=== PATIENT | male | born 1945 | race Caucasian/White ===

== ENCOUNTER 2017-03-03 08:59 | Day surgery (SDC) | payer MEDICARE ==
[2017-03-03] MEDS ORDERED: LACTATED RINGERS 1,000 ML IV ONE (11:15)
[2017-03-03] MEDS ORDERED: MIDAZOLAM 2 MG/2 ML VIAL IVP ONE (11:50)
[2017-03-03] MEDS ORDERED: fentaNYL 100 MCG/2 ML VIAL IVP ONE (11:50)
[2017-03-03 12:41] VITALS: BP 111/55
== END 2017-03-03 09:00 | disposition home or self-care (01) ==
LOC: SDS 08:59
PROVIDERS: ATTEND Surgery
PROC: 0DBP8ZX Excision of Rectum, Via Natural or Artificial Opening Endoscopic, Diagnostic (ICD-10-PCS; principal; 2017-03-03 10:00)
DX: Z12.11 Encounter for screening for malignant neoplasm of colon (principal); K62.1 Rectal polyp; K64.8 Other hemorrhoids; E11.9 Type 2 diabetes mellitus without complications; I10 Essential (primary) hypertension; E78.5 Hyperlipidemia, unspecified; G47.30 Sleep apnea, unspecified; Z79.82 Long term (current) use of aspirin; Z79.84 Long term (current) use of oral hypoglycemic drugs
CPT/HCPCS: 45380; J7120

== ENCOUNTER 2018-02-21 11:26 | Outpatient (CLI) | payer MEDICARE ==
[2018-02-21 19:15] LABS: BASOPHILS # (AUTO) 0.1 10^3/uL (0.0-0.1); BASOPHILS % (AUTO) 0.9 %; EOSINOPHILS # (AUTO) 0.4 10^3/uL (0.0-0.7); EOSINOPHILS % (AUTO) 5.5 %; HGB - HEMOGLOBIN 14.4 g/dL (14.0-18.0); LYMPHOCYTES # (AUTO) 2.5 10^3/uL (1.5-3.5); LYMPHOCYTES % (AUTO) 37.7 %; MEAN CORPUSCULAR HEMOGLOBIN 32.7 pg (27.0-31.0); MEAN CORPUSCULAR HGB CONC 33.2 g/dL (32.0-36.0); MEAN CORPUSCULAR VOLUME 98.3 fL (80.0-94.0); MEAN PLATELET VOLUME 7.8 fL (7.4-11.4); MONOCYTES # (AUTO) 0.8 10^3/uL (0.0-1.0); NEUTROPHILS # (AUTO) 2.9 10^3/uL (1.5-6.6); NEUTROPHILS % (AUTO) 43.9 %; PLT - PLATELET COUNT 248 10^3/uL (130-450); RED BLOOD COUNT 4.42 10^6/uL (4.70-6.10); RED CELL DISTRIBUTION WIDTH 12.7 % (12.0-15.0); WHITE BLOOD COUNT 6.5 x10^3/uL (4.8-10.8)
[2018-02-21 19:34] LABS: ALBUMIN 4.7 g/dL (3.2-5.5); ALBUMIN/GLOBULIN RATIO 1.6 (1.0-2.2); ALKALINE PHOSPHATASE 46 IU/L (42-121); ALT ALANINE AMINOTRANSFERASE 41 IU/L (10-60); AST ASPARTATE AMINOTRANSFERASE 32 IU/L (10-42); BILIRUBIN,TOTAL 1.2 mg/dL (0.2-1.0); BUN - BLOOD UREA NITROGEN 21 mg/dL (6-20); CALCIUM 9.6 mg/dL (8.5-10.3); CARBON DIOXIDE - CO2 24 mmol/L (21-32); CHLORIDE 101 mmol/L (101-111); CHOLESTEROL 142 mg/dL; CREATININE 0.9 mg/dL (0.6-1.2); GFR - MDRD 83 (>89); GLUCOSE 144 mg/dL (70-100); HDL CHOLESTEROL 47 mg/dL; LDL CHOLESTEROL,CALCULATED 45 mg/dL; SODIUM 134 mmol/L (135-145); TOTAL PROTEIN 7.7 g/dL (6.7-8.2); VLDL CHOLESTEROL 50 mg/dL
[2018-02-21 19:53] LABS: HEMOGLOBIN A1C 0.66 g/dL; HEMOGLOBIN A1C % 6.2 % (4.6-6.2)
== END 2018-02-21 23:59 | disposition home or self-care (01) ==
LOC: LAB.WCP 11:26
PROVIDERS: ATTEND Family Medicine
DX: I10 Essential (primary) hypertension (principal); E78.5 Hyperlipidemia, unspecified; E11.9 Type 2 diabetes mellitus without complications; Z12.5 Encounter for screening for malignant neoplasm of prostate; F32.9 Major depressive disorder, single episode, unspecified
CPT/HCPCS: 36415; 80053; 80061; 82043; 83036; 84443; 85025; G0103; 83721; 84153

== ENCOUNTER 2018-11-10 07:59 | Day surgery (SDC) | payer MEDICARE ==
[~2018-11-10 07:59] MED LIST: CYCLOPENTOLATE 1% OPHTH DROPS 2 ML ONE; KETOROLAC 0.45% OPHTH DROPS ONE; PHENYLEPHRINE 2.5% OPHTH 2 ML DROPS ONE; PROPARACAINE 0.5% OPHTH DROPS 15 ML ONE
[2018-11-10] MEDS ORDERED: MIDAZOLAM 2 MG/2 ML VIAL IVP ONE (08:00)
[2018-11-10] MEDS ORDERED: fentaNYL 100 MCG/2 ML VIAL IVP ONE (08:00)
[2018-11-10] MEDS ORDERED: LACTATED RINGERS 500 ML IV ONE (08:19)
--- NOTE | 2018-11-10 08:44 | ANESTHESIA ---
Pre-Anesthesia VS, & Labs - Diagnosis Left nuclear sclerotic cataract - Procedure Left phaco with IOL implant Vital Signs: Temp Pulse Resp BP Pulse Ox 36.5 C 59 L 16 157/76 H 96 11/10/18 08:22 11/10/18 08:22 11/10/18 08:22 11/10/18 08:22 11/10/18 08:22 Height 6 ft - NPO >8 hours - Lab Results Lab results reviewed: No Home Medications and Allergies Home Medications: Ambulatory Orders Fluticasone [Flonase] 1 spray IN DAILY 11/09/18 Turmeric 1 cap PO DAILY 11/09/18 raNITIdine [Zantac] 150 mg PO DAILY 11/09/18 Fenofibrate 160 mg PO DAILY 03/02/17 Losartan [Cozaar] 50 mg PO DAILY 03/02/17 Lovastatin [Altoprev] 40 mg PO DAILY 03/02/17 metFORMIN [Glucophage] 2,000 mg PO BIDWM 03/02/17 B12/Levomefolate Calcium/B-6 [Foltx Tablet] 1 each PO DAILY 03/03/17 Cholecalciferol (Vitamin D3) [Vitamin D3] 1,000 unit PO DAILY 03/03/17 Flaxseed Oil 1,000 mg PO DAILY 03/03/17 Lutein 10 mg PO DAILY 03/03/17 Vit E/Zn/Lut/Lyco/Bilber/Hb261 [Lipotriad Vision Support Plus] 1 each PO DAILY 03/03/17 Fluticasone [Flonase] 1 spray IN DAILY 11/09/18 Turmeric 1 cap PO DAILY 11/09/18 raNITIdine [Zantac] 150 mg PO DAILY 11/09/18 Allergies/Adverse Reactions: Allergies Allergy/AdvReac Type Severity Reaction Status Date / Time codeine AdvReac Cramps Verified 11/10/18 08:19 Anes History & Medical History - Anesthetic History Anesthesia Complications: reports: No previous complications Family history of Anesthesia Complications: Denies Family history of Malignant Hyperthermia: Denies - Medical History Cardiovascular: reports: Hypertension, High cholesterol Pulmonary: reports: Sleep apnea, Other Gastrointestinal: reports: GERD, Ulcers Urinary: reports: None Neuro: reports: None Musculoskeletal: reports: Osteoarthritis Endocrine/Autoimmune: reports: Type 2 diabetes Blood Disorders: reports: None Skin: reports: Other Smoking Status: Never smoker Psychosocial: reports: No issues indicated - Surgical History General: Appendectomy Eyes Ears Nose Throat (EENT): Tonsil/Adenoidectomy Urologic: Testicular surgery Exam General: Alert Dental: Dentures full Upper Mouth Opening: Greater than 4 Fingerbreadths Neck Mobility: Normal Mallampati classification: II Thyromental Distance: greater than 6 cm Respiratory: Lungs clear Cardiovascular: Regular rate Mental/Cognitive Status: Alert/Oriented X3 Cognitive Status: Within normal limits Plan Anesthesia Type: MAC Consent for Procedure(s) Verified and Reviewed: Yes Code Status: Attempt Resuscitation ASA classification: 3-Severe systemic disease Is this case an emergency?: No
[2018-11-10] MEDS ORDERED: EPINEPHrine 1 MG/ML AMP IVP ONE (09:11)
[2018-11-10] MEDS ORDERED: BRIMONIDINE 0.2% OPHTH DROPS 5 ML OPTH ONE (09:11)
[2018-11-10] MEDS ORDERED: VANCOMYCIN OPHTHALMI 8MG/0.8ML 8 MG/0.8 ML SYRINGE IO ONE ×2 (09:12→10:51)
[2018-11-10] MEDS ORDERED: BSS/LIDOCAINE/EPINEPHRINE 1 ML SYRINGE IO ONE (09:12)
[2018-11-10] MEDS ORDERED: TRIAMCIN/MOXIFLOX OPHTHALMIC 0.6 ML VIAL IO ONE ×2 (09:12→10:50)
[2018-11-10] MEDS ORDERED: CHONDR SULF/HYALURONATE SYRINGE IO ONE (09:12)
[2018-11-10] MEDS ORDERED: TIMOLOL 0.5% OPHTH DROPS OPTH ONE (09:12)
[2018-11-10 09:54] VITALS: BP 132/60
--- NOTE | 2018-11-10 10:10 | OPERATIVE REPORT ---
DATE OF SERVICE: 11/10/2018 Physician: Anthony Coleman MD PREOPERATIVE DIAGNOSIS: Visually significant cataract, left eye. This was his first cataract surgery. POSTOPERATIVE DIAGNOSIS: Visually significant cataract, left eye. This was his first cataract surgery. DESCRIPTION OF PROCEDURE: Phacoemulsification with posterior chamber intraocular lens implant, left eye. SURGEON: Anthony Coleman MD ANESTHESIA: Monitored anesthesia care. COMPLICATIONS: None. OPERATIVE INDICATIONS: This is a 73-year-old man with progressive vision loss in the left eye due to 3-4+ nuclear sclerotic and 1+ cortical cataract. Best corrected visual acuity was 20/40 with glare to 20/160. Indications for surgery are overall decrease in vision, difficulty seeing words on a computer screen, difficulty reading, difficulty seeing street signs, difficulty driving in low light or at night, difficulty driving at night because of headlights from other vehicles, and difficulty with glare or bright lights in any situation. He was consented at length concerning risks and benefits of cataract surgery, after which he expressed a desire to proceed with surgery. OPERATIVE PROCEDURE: Patient was taken to OR #3 and placed under monitored anesthesia care. A surgical timeout was conducted confirming correct patient, correct procedure, and correct surgical site. He was given topical anesthesia and prepped and draped in the usual sterile fashion. The eye was entered at the 6 and 3 o'clock positions. Intracameral Shugarcaine was injected into the anterior chamber followed by Viscoat. A continuous-tear curvilinear capsulorrhexis was performed. The nucleus was hydrodissected and phacoemulsified. The cortex was evacuated using automated infusion and aspiration (I&A). Provisc was injected in the capsular bag and a 14.5 diopter intraocular lens inserted in the bag. Approximately a 0.8 mL mixture of triamcinolone, moxifloxacin and vancomycin was injected subconjunctivally in the superior quadrant for infection and inflammation prophylaxis. I&A was used to evacuate the viscoelastic materials. The eye was inflated to physiologic pressure using balanced salt solution and found to be watertight. The patient was taken from the operating room in good condition and given postoperative instructions. TD: 11/10/2018 09:32 [facility]
[2018-11-10] MEDS ORDERED: BRIMONIDINE 0.2% OPHTH DROPS 5 ML ONE (10:51)
[2018-11-10] MEDS ORDERED: EPINEPHrine 1 MG/ML AMP ONE (10:51)
[2018-11-10] MEDS ORDERED: BSS/LIDOCAINE/EPINEPHRINE 1 ML SYRINGE ONE (10:51)
[2018-11-10] MEDS ORDERED: TIMOLOL 0.5% OPHTH DROPS ONE (10:51)
== END 2018-11-10 08:00 | disposition home or self-care (01) ==
LOC: SDS 07:59
PROVIDERS: ATTEND Ophthalmology
PROC: 08RK3JZ Replacement of Left Lens with Synthetic Substitute, Percutaneous Approach (ICD-10-PCS; principal; 2018-11-10 09:00)
DX: H25.12 Age-related nuclear cataract, left eye (principal); E11.9 Type 2 diabetes mellitus without complications; I10 Essential (primary) hypertension; G47.33 Obstructive sleep apnea (adult) (pediatric)
CPT/HCPCS: 66984; A9270; J3490; V2632

== ENCOUNTER 2019-04-27 08:10 | Day surgery (SDC) | payer MEDICARE ==
[~2019-04-27 08:10] MED LIST changes: +BRIMONIDINE 0.2% OPHTH DROPS 5 ML ONE; +BSS/LIDOCAINE/EPINEPHRINE 1 ML SYRINGE ONE; +TRIAMCIN/MOXIFLOX OPHTHALMIC 0.6 ML VIAL IO ONE; +VANCOMYCIN OPHTHALMI 8MG/0.8ML 8 MG/0.8 ML SYRINGE IO ONE; +timoloL maleate 0.5% OPHTH DROPS (10ML) ONE
[2019-04-27] MEDS ORDERED: MIDAZOLAM 2 MG/2 ML VIAL IVP ONE (08:11)
[2019-04-27] MEDS ORDERED: LACTATED RINGERS 500 ML IV ONE (08:36)
--- NOTE | 2019-04-27 09:00 | ANESTHESIA ---
Pre-Anesthesia VS, & Labs - Diagnosis nuclear sclerotic cataract - Procedure laser assisted cataract extraction with intraocular lens Vital Signs: Temp Pulse Resp BP Pulse Ox 36.5 C 56 L 14 137/75 H 97 04/27/19 08:22 04/27/19 08:22 04/27/19 08:22 04/27/19 08:22 04/27/19 08:22 Height 5 ft 11 in Weight (kg) 98.2 kg - NPO >8 hours - Lab Results Current Lab Results: Laboratory Tests 04/27/19 08:34: POC Whole Bld Glucose 140 H Home Medications and Allergies Home Medications: Ambulatory Orders Bromelains 04/26/19 Booker-3/Dha/Epa/Fish Oil [Fish Oil 1,000 mg Softgel] 04/26/19 Fenofibrate 160 mg PO DAILY 03/02/17 Losartan [Cozaar] 50 mg PO DAILY 03/02/17 Lovastatin [Altoprev] 40 mg PO DAILY 03/02/17 metFORMIN [Glucophage] 1,000 mg PO BIDWM 03/02/17 B12/Levomefolate Calcium/B-6 [Foltx Tablet] 1 each PO DAILY 03/03/17 Cholecalciferol (Vitamin D3) [Vitamin D3] 1,000 unit PO DAILY 03/03/17 Flaxseed Oil 1,000 mg PO DAILY 03/03/17 Lutein 10 mg PO DAILY 03/03/17 Vit E/Zn/Lut/Lyco/Bilber/Hb261 [Lipotriad Vision Support Plus] 1 each PO DAILY 03/03/17 Fluticasone [Flonase] 1 spray IN DAILY 11/09/18 Turmeric 1 cap PO DAILY 11/09/18 raNITIdine [Zantac] 150 mg PO DAILY 11/09/18 Bromelains 04/26/19 Booker-3/Dha/Epa/Fish Oil [Fish Oil 1,000 mg Softgel] 04/26/19 Allergies/Adverse Reactions: Allergies Allergy/AdvReac Type Severity Reaction Status Date / Time codeine AdvReac Cramps Verified 11/10/18 08:19 Anes History & Medical History - Anesthetic History Anesthesia Complications: reports: No previous complications - Medical History Cardiovascular: reports: Hypertension, High cholesterol Pulmonary: reports: Sleep apnea, Other Gastrointestinal: reports: GERD, Ulcers Urinary: reports: None Neuro: reports: None Musculoskeletal: reports: Osteoarthritis Endocrine/Autoimmune: reports: Type 2 diabetes Blood Disorders: reports: None Skin: reports: Other Smoking Status: Never smoker - Surgical History General: Appendectomy Eyes Ears Nose Throat (EENT): Tonsil/Adenoidectomy Urologic: Testicular surgery Exam General: Alert Dental: WNL Mouth Opening: Greater than 4 Fingerbreadths Neck Mobility: Normal Mallampati classification: II Thyromental Distance: greater than 6 cm Respiratory: Lungs clear Cardiovascular: Regular rate, Normal S1, Normal S2 Plan Anesthesia Type: MAC Consent for Procedure(s) Verified and Reviewed: Yes Code Status: Attempt Resuscitation ASA classification: 2-Mild systemic disease Is this case an emergency?: No
[2019-04-27] MEDS ORDERED: PROPARACAINE 0.5% OPHTH DROPS 15 ML RIGHTEYE ONE (09:43)
[2019-04-27] MEDS ORDERED: BSS/LIDOCAINE/EPINEPHRINE 1 ML SYRINGE ONE (09:48)
[2019-04-27] MEDS ORDERED: VANCOMYCIN OPHTHALMI 8MG/0.8ML 8 MG/0.8 ML SYRINGE IO ONE ×2 (09:49→09:56)
[2019-04-27] MEDS ORDERED: TRIAMCIN/MOXIFLOX OPHTHALMIC 0.6 ML VIAL IO ONE ×2 (09:51→09:55)
[2019-04-27] MEDS ORDERED: BRIMONIDINE 0.2% OPHTH DROPS 5 ML OPTH ONE (09:53)
[2019-04-27] MEDS ORDERED: EPINEPHrine 1 MG/ML AMP IVP ONE (09:54)
[2019-04-27] MEDS ORDERED: TIMOLOL 0.5% OPHTH DROPS OPTH ONE (09:54)
[2019-04-27] MEDS ORDERED: CHONDR SULF/HYALURONATE SYRINGE IO ONE (09:54)
[2019-04-27] MEDS ORDERED: BSS/LIDOCAINE/EPINEPHRINE 1 ML SYRINGE IO ONE (09:55)
[2019-04-27 10:34] VITALS: BP 130/59
--- NOTE | 2019-04-27 12:07 | OPERATIVE REPORT ---
DATE OF SERVICE: 04/27/2019 Physician: Anthony Coleman MD PREOPERATIVE DIAGNOSIS: Visually significant cataract, right eye. This is his second cataract surgery. His first cataract surgery was done 11/10/2018 with traditional cataract surgery. POSTOPERATIVE DIAGNOSIS: Visually significant cataract, right eye. This is his second cataract surgery. His first cataract surgery was done 11/10/2018 with traditional cataract surgery. PROCEDURE: Phacoemulsification with posterior chamber intraocular lens implant, right eye with laser assist and toric IOL. SURGEON: Anthony Coleman MD ANESTHESIA: Monitored anesthesia care. COMPLICATIONS: None. OPERATIVE INDICATIONS: This is a 72-year-old man with progressive vision loss in the right eye due to 3+ nuclear sclerotic cataract. Best corrected visual acuity was 20/30, with glare to 20/80 in the right eye. Indications for surgery were overall decrease in vision, difficulty reading, difficulty seeing street signs, difficulty driving in low light or at night, difficulty driving at night because headlights from other vehicles, and difficulty with glare or bright lights in any situation. He was consented at length concerning risks and benefits of cataract surgery, after which he expressed a desire to proceed with surgery. OPERATIVE PROCEDURE: The patient was taken to OR #3 and placed under monitored anesthesia care. Surgical timeout was conducted confirming correct patient, correct procedure, and correct surgical site. While still in the pre-surgical area his sclera/cornea was marked at the horizontal axis in case his eye torques when lying down. He was then placed under the LenSx laser and his eye docked to the laser interface. The laser performed the capsulotomy, lens softening, phaco wounds and toric instrument lens inspector incisions. He was then moved to the operating microscope, given topical anesthesia, and prepped and draped in the usual sterile fashion. The eye was entered at the 12 and 9 o'clock positions. Intracameral Shugarcaine was injected into the anterior chamber, followed by Viscoat. The capsulorrhexis flap created by the LenSx laser was removed from the anterior chamber. The nucleus was hydrodissected and phacoemulsified. The cortex was evacuated using automated infusion and aspiration. Provisc was injected in the capsular bag and a 14.5 diopter toric intraocular lens was inserted into the bag. Infusion and aspiration was used to evacuate the viscoelastic materials after the IOL had been rotated to an axis of 072. The eye was inflated to physiologic pressure using balanced salt solution and found to be watertight. The lens was again verified to be in the correct positions of 072 axis. Approximately 0.25 mL of a mixture of triamcinolone and moxifloxacin was injected transsclerally into the vitreous in the inferotemporal quadrant. An additional 0.55 mL of a mixture of triamcinolone, moxifloxacin, and vancomycin was injected subconjunctivally in the superior quadrant for infection and inflammation prophylaxis. Wound integrity was checked with Weck-Yu sponges. The lens was verified one more time to be in the proper axis of 072. The patient was taken from the operating room in good condition and given postoperative instructions. TD: 04/27/2019 10:22 [facility]
== END 2019-04-27 08:11 | disposition home or self-care (01) ==
LOC: SDS 08:10
PROVIDERS: ATTEND Ophthalmology
DX: E11.36 Type 2 diabetes mellitus with diabetic cataract (principal); H25.11 Age-related nuclear cataract, right eye; E78.00 Pure hypercholesterolemia, unspecified; H18.52 Epithelial (juvenile) corneal dystrophy; G47.30 Sleep apnea, unspecified; I10 Essential (primary) hypertension; K21.9 Gastro-esophageal reflux disease without esophagitis; Z79.84 Long term (current) use of oral hypoglycemic drugs; Z96.1 Presence of intraocular lens
CPT/HCPCS: 66984; A9270; J3490; V2632; V2787

== ENCOUNTER 2019-08-30 09:32 | Outpatient (CLI) | payer MEDICARE ==
[2019-08-30 15:43] LABS: BASOPHILS # (AUTO) 0.1 10^3/uL (0.0-0.1); BASOPHILS % (AUTO) 1.7 %; EOSINOPHILS # (AUTO) 0.2 10^3/uL (0.0-0.7); EOSINOPHILS % (AUTO) 4.6 %; HGB - HEMOGLOBIN 13.6 g/dL (14.0-18.0); LYMPHOCYTES % (AUTO) 41.8 %; MEAN CORPUSCULAR HEMOGLOBIN 31.9 pg (27.0-31.0); MEAN CORPUSCULAR HGB CONC 32.8 g/dL (32.0-36.0); MEAN CORPUSCULAR VOLUME 97.4 fL (80.0-94.0); MEAN PLATELET VOLUME 9.3 fL (7.4-11.4); MONOCYTES # (AUTO) 0.6 10^3/uL (0.0-1.0); MONOCYTES % (AUTO) 12.1 %; NEUTROPHILS # (AUTO) 1.9 10^3/uL (1.5-6.6); NEUTROPHILS % (AUTO) 39.6 %; PLT - PLATELET COUNT 237 10^3/uL (130-450); RED BLOOD COUNT 4.26 10^6/uL (4.70-6.10); RED CELL DISTRIBUTION WIDTH 12.8 % (12.0-15.0); WHITE BLOOD COUNT 4.8 x10^3/uL (4.8-10.8)
[2019-08-30 15:47] LABS: HB2 TOTAL 14.2 g/dL; HEMOGLOBIN A1C 0.67 g/dL; HEMOGLOBIN A1C % 6.5 % (4.6-6.2)
[2019-08-30 16:04] LABS: ALBUMIN 4.5 g/dL (3.2-5.5); ALBUMIN/GLOBULIN RATIO 1.8 (1.0-2.2); ALKALINE PHOSPHATASE 35 IU/L (42-121); ALT ALANINE AMINOTRANSFERASE 36 IU/L (10-60); AST ASPARTATE AMINOTRANSFERASE 28 IU/L (10-42); BILIRUBIN,TOTAL 1.6 mg/dL (0.2-1.0); BUN - BLOOD UREA NITROGEN 20 mg/dL (6-20); CALCIUM 9.5 mg/dL (8.5-10.3); CARBON DIOXIDE - CO2 26 mmol/L (21-32); CHLORIDE 103 mmol/L (101-111); CHOLESTEROL 151 mg/dL; GLUCOSE 133 mg/dL (70-100); HDL CHOLESTEROL 50 mg/dL; LDL CHOLESTEROL,CALCULATED 64 mg/dL; LDL/HDL RATIO 1.3 (<3.6); SODIUM 136 mmol/L (135-145); VLDL CHOLESTEROL 37 mg/dL
== END 2019-08-30 09:33 | disposition home or self-care (01) ==
LOC: LAB.S 09:32
PROVIDERS: ATTEND Family Medicine
DX: I10 Essential (primary) hypertension (principal); E78.5 Hyperlipidemia, unspecified; E11.9 Type 2 diabetes mellitus without complications; F41.9 Anxiety disorder, unspecified
CPT/HCPCS: 36415; 80053; 80061; 82043; 83036; 83721; 84443; 85025

== ENCOUNTER 2019-09-28 19:46 | Outpatient (CLI) | payer MEDICARE | END 2019-09-28 19:47 | disposition home or self-care (01) | LOC: COV 19:46 | PROVIDERS: ATTEND Family Medicine | DX: R05 Cough (principal); M79.10 Myalgia, unspecified site; R53.83 Other fatigue; R19.7 Diarrhea, unspecified; R09.81 Nasal congestion; Z20.828 Contact with and (suspected) exposure to other viral communicable diseases ==

== ENCOUNTER 2020-03-20 13:32 | Outpatient (CLI) | payer MEDICARE ==
--- OUTSIDE RECORDS SUMMARY | 2020-03-20 13:35 | EXTERNAL MEDICAL SUMMARY RPT | Continuity of Care Document ---
:1945 Demographics Phone Unavailable Preferred Language Unknown Marital Status Unknown Sabianist Affiliation Unknown Race Unknown Ethnic Group Unknown Author Organization [facility] Address [address] [phone] Phone Care Team Providers Name Role Phone MD Unavailable Unavailable Problems date description facility 2020-03-08 00:00:00 MICROALBUMIN/CREAT RATIO [facility] [place] [facility] 2020-03-08 00:00:00 Basic Metabolic Panel (BMP) [facility] [place] [facility] 2020-03-08 00:00:00 HGBA1C [facility] [place] [facility] Social History date description facility [id number]
--- NOTE | 2020-03-20 16:29 | XRAY Report ---
PROCEDURE: Knee 3 View BILAT INDICATIONS: BILATERAL KNEE PAIN TECHNIQUE: 3 views of the right and left knee(s) were acquired. COMPARISON: None. FINDINGS: Bones: No fractures or dislocations. No suspicious bony lesions. Moderate tricompartmental osteoart hritic degenerative changes noted in the knees bilaterally. 2.0 cm ossification noted posterior to th e left knee joint which could represent ossified loose body in a popliteal cyst or large flabella. De siccation noted adjacent to the left anterior tibial tubercle which could represent heterotopic ossif ication or sequela of chronic Evita-Schlatter's. Soft tissues: No joint effusion. No suspicious soft tissue calcifications. IMPRESSION: Moderate bilateral knee tricompartmental osteoarthritis. Reviewed by: Rachelle Delacruz MD, PhD on 03/20/2020 4:27 PM PST Approved by: Rachelle Delacruz MD, PhD on 03/20/2020 4:27 PM PST Station ID: [id number]
== END 2020-03-20 13:33 | disposition home or self-care (01) ==
LOC: DI 13:32
PROVIDERS: ATTEND Nurse Practitioner Family
DX: M17.0 Bilateral primary osteoarthritis of knee (principal)

== ENCOUNTER 2022-04-30 07:00 | Outpatient (CLI) | payer MEDICARE ==
--- NOTE | 2022-04-30 17:14 | XRAY Report ---
PROCEDURE: Hip w/Pelvis 1V LT INDICATIONS: LEFT HIP PAIN TECHNIQUE: AP pelvis with lateral view(s) of the left hip(s). COMPARISON: None. FINDINGS: Bones: No fractures or dislocations. Mild to moderate bilateral hip joint osteophytic changes are s een with superior joint space narrowing, subchondral sclerosis and marginal osteophyte formation. No evidence of avascular necrosis of femoral head. Pelvic ring appears intact. No suspicious bony lesio ns. Soft tissues: The visualized bowel gas pattern is normal. No suspicious soft tissue calcifications. IMPRESSION: Mild to moderate bilateral hip joint osteoarthritis. No fracture or dislocation. No evide nce of avascular necrosis. Reviewed by: Tristin White MD on 04/30/2022 5:12 PM PST Approved by: Tristin White MD on 04/30/2022 5:12 PM PST Station ID: [id number]
--- NOTE | 2022-04-30 17:15 | XRAY Report ---
PROCEDURE: Knee 3 View RT INDICATIONS: RIGHT KNEE PAIN TECHNIQUE: 3 views of the right knee(s) were acquired. COMPARISON: None. FINDINGS: Bones: No fractures or dislocations. Moderate tricompartmental osteophyte is is seen most notably m edial femoral tibial compartment with joint space narrowing, subchondral sclerosis and marginal osteo phyte formation. No suspicious bony lesions. Soft tissues: Small suprapatellar joint effusion. No suspicious soft tissue calcifications. IMPRESSION: 1. Moderate tricompartment osteoarthritis most notably in medial femoral tibial compartment. No right knee fracture or dislocation. Small joint effusion. Reviewed by: Tristin White MD on 04/30/2022 5:14 PM PST Approved by: Tristin White MD on 04/30/2022 5:14 PM PST Station ID: [id number]
--- NOTE | 2022-04-30 17:15 | XRAY Report ---
PROCEDURE: Knee 3 View LT INDICATIONS: LEFT KNEE PAIN TECHNIQUE: 3 views of the left knee(s) were acquired. COMPARISON: None. FINDINGS: Bones: No fractures or dislocations. Moderate to severe tricompartmental osteoarthritis is seen mos t notably in medial femoral tibial compartment. 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 No suspicious bony lesions. Soft tissues: Small to moderate joint effusion. No suspicious soft tissue calcifications. IMPRESSION: 1. Moderate to severe tricompartmental osteoarthritis most notably in medial femoral tibial compartme nt. 2. No acute fracture or dislocation. Suggestion of old [place]-Schlatter disease. Small to moderate christina int effusion. Reviewed by: Tristin White MD on 04/30/2022 5:13 PM PST Approved by: Tristin White MD on 04/30/2022 5:13 PM PST Station ID: [id number]
== END 2022-04-30 23:59 | disposition home or self-care (01) ==
LOC: DI.S 07:00
PROVIDERS: ATTEND Nurse Practitioner Family
DX: M17.0 Bilateral primary osteoarthritis of knee (principal); M25.461 Effusion, right knee; M25.462 Effusion, left knee; M16.0 Bilateral primary osteoarthritis of hip